=== PATIENT | male | born 1960 | race Two or more races ===

== ENCOUNTER 2018-09-28 19:03 | Emergency (ER) | payer MEDICAID ==
[~2018-09-28] VITALS: Ht 170.2 cm; Wt 84.0 kg
[2018-09-28 23:30] VITALS: BP 152/80
== END 2018-09-29 00:24 | disposition home or self-care (01) ==
LOC: ER 19:03
DX: R20.2 Paresthesia of skin (principal); R20.0 Anesthesia of skin; E11.9 Type 2 diabetes mellitus without complications; Z87.891 Personal history of nicotine dependence
CPT/HCPCS: 82962; 93005; 99283

== ENCOUNTER 2019-07-15 16:18 | Emergency (ER) | payer MEDICAID ==
[~2019-07-15] VITALS: Ht 165.1 cm; Wt 75.0 kg
[2019-07-15 16:30] VITALS: BP 148/88
== END 2019-07-15 17:27 | disposition home or self-care (01) ==
LOC: ER 16:18
DX: H11.32 Conjunctival hemorrhage, left eye (principal); E11.9 Type 2 diabetes mellitus without complications; F12.10 Cannabis abuse, uncomplicated
CPT/HCPCS: 99281